=== PATIENT | female | born 1975 | race Caucasian/White ===

== ENCOUNTER → 2024-01-15 | Outpatient (CLI) | payer OTHER, SELFPAY ==
[2024-01-15 23:03] LABS: Absolute Lymphocyte Count 2.47 X10^3/uL (0.83-4.51); Absolute Neutrophil Count 5.1 X10^3/uL (2.0-7.7); Basophil# 0.05 X10^3/uL; Basophil% 0.6 % (0-1); Eosinophil# 0.18 X10^3/uL; Eosinophils% 2.1 % (0-5); Hematocrit 37.3 % (37-47); Hemoglobin 12.3 g/dL (12.0-15.0); Lymphocyte # 2.47 X10^3/ul (0.83-4.51); Lymphocyte % 29.1 % (19-41); Mean Corpuscular Hgb 31.6 pg (27.0-32.0); Mean Corpuscular Volume 95.9 fL (81-99); Mean Platelet Vol. 12.7 fl (6.2-12.0); Monocyte# 0.64 X10^3/uL; Monocyte% 7.5 % (0-10); NRBC Flagged by Analyzer 0 % (0-5); Neutrophil # 5.12 X10^3/uL (2.7-7.7); Neutrophil % 60.5 % (47-70); Platelet Count 337 K/mm3 (150-450); RBC Distribution Width CV 13.2 % (11.6-14.6); RBC Distribution Width SD 46.4 fl (35.1-43.9); Red Blood Count 3.89 M/mm3 (4.2-5.4); White Blood Count 8.5 K/mm3 (4.4-11.0)
[2024-01-15 23:24] LABS: Follicle Stimulating Hormone 43.9 mIU/mL; Iron Binding Capacity,Total 442 ug/dL (250-450); Luteinizing Hormone 31.7 mIU/mL
[2024-01-15 23:53] LABS: PTHIN 43.5 pg/mL (18.4-80.1)
[2024-01-15 23:58] LABS: Vitamin B12 1186 pg/mL (211-911)
[2024-01-19 12:08] LABS: Vitamin D 1,25-Dihydroxy 67.9 pg/mL (24.8-81.5)
== END | disposition home or self-care (01) ==
PROVIDERS: Referring Provider Nurse Practitioner; Visit Provider Nurse Practitioner
DX: E06.9 Thyroiditis, unspecified (principal); D64.9 Anemia, unspecified; R79.0 Abnormal level of blood mineral; R63.5 Abnormal weight gain; K21.9 Gastro-esophageal reflux disease without esophagitis; R53.83 Other fatigue; R14.0 Abdominal distension (gaseous)
CPT/HCPCS: 82533; 82607; 82652; 83001; 83002; 83550; 83970; 84207; 84466; 85025; 86376